=== PATIENT | female | born 1990 | race Caucasian/White ===

== ENCOUNTER 2019-01-26 18:46 | Emergency (ER) | payer MEDICAID ==
[~2019-01-26] VITALS: Ht 157.5 cm; Wt 74.4 kg
[~2019-01-26 18:46] MED LIST: PREN-88 PO
[2019-01-26] MEDS ORDERED: MORPHINE SULFATE 4 MG/ML CPJ (NOT FOR IM USE) IV STA (20:50)
[2019-01-26] MEDS ORDERED: SODIUM CHLORIDE 0.9% 1,000 ML IV ONE (20:50)
[2019-01-26] MEDS ORDERED: ACETAMINOPHEN 650MG/20.3ML UDC PO ONE (21:15)
[2019-01-26 21:29] LABS: BASOPHILS % 0.6 % (0.0-2.0); EOSINOPHILS % 2.9 % (0.0-5.0); HEMATOCRIT. 38.2 % (36.0-48.0); HEMOGLOBIN. 12.9 g/dL (12.0-16.0); LYMPHOCYTES % 20.6 % (20.0-50.0); MEAN CORPUSCULAR HEMOGLOBIN 29.9 pg (28.0-32.0); MEAN CORPUSCULAR VOLUME 88.4 fL (81.0-99.0); MEAN PLATELET VOLUME 9.1 fl (7.4-10.4); MONOCYTES % 6.4 % (2.0-8.0); NEUTROPHILS % 69.5 % (40.0-76.0); PLATELET 280 x1000/uL (130-400); PROTHROMBIN TIME 10.7 sec (9.6-11.0); RED BLOOD CELL COUNT 4.32 mill/uL (4.2-5.4); RED CELL DISTRIBUTION WIDTH 13.8 % (11.6-14.6)
[2019-01-26 21:30] LABS: CHLORIDE 110 mEq/L (98-107)
[2019-01-26 21:34] LABS: ETHANOL BLOOD < 10 mg/dL
[2019-01-26 21:41] LABS: HCG SCREEN NEGATIVE
[2019-01-26 22:31] LABS: CLARITY URINE CLEAR (CLEAR); COLOR URINE YELLOW (YELLOW); KETONES URINE NEGATIVE (NEGATIVE); LEUKOCYTE ESTERASE URINE TRACE (NEGATIVE); NITRITE URINE NEGATIVE (NEGATIVE); OCCULT BLOOD URINE 1+ (NEGATIVE); PROTEIN URINE NEGATIVE (NEGATIVE); SPECIFIC GRAVITY URINE 1.008 (1.005-1.030); UROBILINOGEN URINE 0.2 E.U./dL (0.2-1.0)
[2019-01-27] MEDS ORDERED: IOHEXOL-300 100 ML BOTTLE ONE (01:57)
[2019-01-27 03:00] VITALS: BP 100/64
== END 2019-01-27 03:56 | disposition home or self-care (01) ==
LOC: ER 18:46
DX: R10.31 Right lower quadrant pain (principal); N20.0 Calculus of kidney; Z90.49 Acquired absence of other specified parts of digestive tract; Z97.5 Presence of (intrauterine) contraceptive device
CPT/HCPCS: 36415; 74177; 80053; 80320; 81003; 83690; 84703; 85025; 85610; 99284; J7030; Q9967; Z7610; G0480